=== PATIENT | female | born 1950 | race Caucasian/White ===

== ENCOUNTER → 2016-07-20 | Outpatient (CLI) | payer MEDICARE, BC ==
[~2016-07-20] MED LIST: ALEN70TA15 PO; CALC-586 PO; CITA10TA7 PO; CITA20TA9 PO; CLON0.1T PO; FERR-67 PO; FOLI0.4T2 PO; GABA-218 PO; IBUP-14 PO; LOSA1TAB96 PO; MELO-32 PO; METF-200 PO; MULT-488 PO; PANT40TA25 PO; POTA10TA18 PO; PSYL1PAC15 PO; VITA1CAP65 PO
--- NOTE | 2016-07-20 12:54 | DI ---
Indication: ITS.REASON: R53.83 OTHER FATIGUE; E04.1 NONTOXIC SINGLE THYROID NODULE PROCEDURE: US THYROID: Encounter: Initial Comparison: Outside CT report dated June 21, 2016 along with thyroid ultrasound dated December 26, 2009 Technique: Grayscale and color Doppler sonographic imaging of the thyroid gland was performed. Findings: Right thyroid lobe shows a mixed echogenicity heterogeneous nodule which is taller than wide occupying most of the lobe measuring 2.4 x 2.4 x 2.7 cm in size. This is similar in size to the comparison with more cystic component currently. There are some internal echogenic foci consistent with calcifications internally. The thyroid isthmus appears normal measuring 0.4 cm in size. There is a purely cystic benign-appearing 2 x 1.3 x 2 cm nodule in the left lobe which is also stable. Smaller adjacent 0.9 cm cyst is also stable from the prior study. Right lobe measures 3.2 x 2.7 x 2.7 cm. Left lobe measures 3.7 x 2 x 2.6 cm. Normal Doppler flow to both thyroid lobes. Impression: Stable size of bilateral thyroid nodules dating back to 2009. However the right-sided nodule contains internal calcifications and fine-needle aspiration is recommended due to its size. .
== END ==
LOC: IMA 10:23
PROVIDERS: ATTEND Internal Medicine Gastroenterology
DX: E04.2 Nontoxic multinodular goiter (principal); R53.83 Other fatigue; R93.8 Abnormal findings on diagnostic imaging of other specified body structures

== ENCOUNTER 2016-07-24 10:55 | Outpatient (CLI) | payer MEDICARE, BC ==
[2016-07-24] VITALS (21 sets, daily range): BP systolic 123–176; BP diastolic 62–104; PULSE 64–82; RESP 11–24; TEMP 97.7; O2SAT 92–99; Ht 152.4 cm; Wt 107.9 kg
[~2016-07-24] VITALS: Ht 152.4 cm; Wt 107.9 kg
[2016-07-24] MEDS ORDERED: LR 1,000 ML IV SCH (11:00)
[2016-07-24] MEDS ORDERED: MORPHINE SULFATE 10 MG SYRINGE IV PRN (11:00)
[2016-07-24] MEDS ORDERED: ACETAMINOPHEN 325 MG TABLET PO PRN (11:00)
--- NOTE | 2016-07-24 11:04 | NUR ---
ARRIVAL PT TO ROOM 133 PER WHEELCHAIR. PT ON 2L O2 PER NC, WEARS AT HOME. PT TRANSFERRED SELF FROM WHEELCHAIR TO BED. VS OBTAINED. VS STABLE. PT RESTING IN BED WITH ALARM. CALL LIGHT WITHIN REACH. WILL CONTINUE TO MONITOR.
[2016-07-24 11:35] LABS: INR 0.92 (0.77-1.03); PROTHROMBIN TIME 10.1 SEC (9.48-12.52)
[2016-07-24] MEDS ORDERED: LIDOCAINE 1% 30ml (STERI-PAK) ONE (13:15)
--- NOTE | 2016-07-24 13:55 | NUR ---
CM THIS WORKER STOPPED BY PT'S ROOM; SHE WAS AT A PROCEDURE BUT SPOUSE WAS PRESENT AND PROVIDED THE INFORMATION. THIS WORKER INTRODUCED SELF, EXPLAINED ROLE, PROVIDED CONTACT INFO. SPOUSE SAID HE AND PT LIVE HERE IN [place], AND DC IS FOR PT TO RETURN HOME. HE SAID PT DOES NOT HAVE HOME HEALTH AND DOES NOT HAVE DME; HE STATED THAT HE HIMSELF DOES, BUT THAT PT DOES NOT HAVE THEM AND WILL NOT NEED THEM. THIS WORKER ENCOURAGED HIM TO HAVE PT CALL IF SHE DOES HAVE QUESTIONS/NEEDS, AND HE SAID OK. Addendum: 07/24/16 at 1356 by MONICA CARRINGTON Amended: Links added.
--- NOTE | 2016-07-24 14:05 | NUR ---
ARRIVAL FROM RADIOLOGY PT BACK FROM LIVER BIOPSY. PT RATING PAIN AT 9/10. WILL NOTIFY DR NESS. VS STABLE. SMALL AMOUNT OF SHADOWING ON BANDAGE. PT RESTING IN BED WITH ALARM. CALL LIGHT WITHIN REACH. WILL CONTINUE TO MONITOR.
[2016-07-24] MEDS ORDERED: FENTANYL 100mcg/2ml INJECTION IV ONE ×3 (14:15→15:00)
[2016-07-24] MEDS ORDERED: MIDAZOLAM 2mg/2ml INJECTION IV ONE (14:23)
--- NOTE | 2016-07-24 16:14 | NUR ---
CM STOPPED BY PT'S ROOM, SHE WAS PRESENT. CONFIRMED DC PLAN OF HOME. SHE DENIED HAVING ANY NEEDS. SHE SAID SHE HAS HOME OXYGEN, AND SHE HAS A PORTABLE TANK WITH HER FOR HER RIDE HOME. SHE HAD NO QUESTIONS/NEEDS FOR THIS WORKER.
--- NOTE | 2016-07-24 16:58 | DI ---
Indication:ITS.REASON: R53.83; I85.00 Ordering physician: Aixa Jose MD Procedure:US BIOPSY LIVER MONITORED IV SEDATION: The patient was given 1 mg Versed and 100 mcg fentanyl intravenously . This was administered by the [employer] nurse. The [employer] nurse did continuous monitoring during the procedure in radiology and also after the procedure in the patient's recovery room. Monitoring consisted of heart rate, pulse oximetry, and blood pressure. There is no complication. LIVER BIOPSY WITH ULTRASOUND GUIDANCE: After discussing the details of the procedure, including the risks, the patient wished to proceed. Informed consent was obtained. A preprocedural timeout was performed to confirm the correct patient and procedure. Using aseptic technique, local lidocaine anesthetic, and ultrasound guidance throughout, three passes using an 18-gauge core biopsy needle were performed to obtain three, 3 cm random tissue samples of the left lobe of the liver using an anterior approach. The samples were placed in formalin and sent to lab for the requested studies. The patient tolerated this procedure well. Following this, the patient was transferred back to her recovery room in stable condition to await discharge. Impression: Successful random liver biopsy from the left lobe of the liver. Jonathan Stout RPA/RRA performed this under my personal supervision. .
--- NOTE | 2016-07-24 17:35 | NUR ---
DISCHARGE PATIENT IS ALERT AND ORIENTED X3. PATIENT VITALS ARE STABLE AND PATIENT IS ON 2L VIA NC. PATIENT DISCHARGE INSTRUCTIONS INCLUDE: CONTINUED MEDICATIONS, DI FOR US GUIDED LIVER BIOPSY, REASONS TO CALL DOCTOR AND/OR SEEK IMMEDIATE CARE, ACTIVITY, DIET, AND SIGNS AND SYMPTOMS OF INFECTION. PERSONAL BELONGINGS RETURNED AND ID BAND REMOVED. PATIENT IV IS DISCONTINUED. PATIENT LEFT VIA WHEELCHAIR THROUGH ER ENTRANCE. PATIENT WAS TRANSPORTED HOME FOR SELF CARE BY .
--- NOTE | 2016-07-26 14:56 | NUR ---
ATTEMPTED [facility] FOLLOW UP PHONE CALL #1, NO ANSWER, LEFT VOICE MESSAGE TO RETURN CALL TO CM.
== END 2016-07-24 17:35 ==
LOC: SRG 10:55 → IMA.BED 10:55
PROVIDERS: ATTEND Radiology Diagnostic Radiology
DX: I85.00 Esophageal varices without bleeding (principal); R53.83 Other fatigue; K76.0 Fatty (change of) liver, not elsewhere classified
CPT/HCPCS: 47000; 76942; 85049; 85610; 94770; A9270; J2250; J3010; J7120